=== PATIENT | male | born 1960 ===

== ENCOUNTER → 2021-11-15 | Day surgery (SDC) | payer OTHER | END | disposition home or self-care (01) | LOC: ADM 11-13 14:30 → AMB-ENDOS 06:43 | PROVIDERS: ATTEND Surgery | DX: K57.30 Diverticulosis of large intestine without perforation or abscess without bleeding (principal); K66.0 Peritoneal adhesions (postprocedural) (postinfection); K64.9 Unspecified hemorrhoids; N18.6 End stage renal disease ==